=== PATIENT | female | born 1965 | race American Indian/Alaskan Native ===

== ENCOUNTER 2017-05-03 16:23 | Emergency (ER) | payer BC ==
[2017-05-03 16:31] VITALS: BP 170/98
[2017-05-03 16:54] LABS: Bilirubin,Urine NEG (Negative); Blood,Urine NEG (Negative); Color,Urine Straw (Yellow); Protein,Urine <15 mg/dL mg/dL (Negative); Urobilinogen,Urine < 2.0 mg/dL (<2.0); WBC,Urine < 1.0 /HPF (0.0-6.0)
--- NOTE | 2017-05-03 17:59 | Emergency Department Report ---
ED Back Pain/Injury HPI - General Chief Complaint: Abdominal Pain Stated Complaint: ABD PAIN Time Seen by Provider: 05/03/17 17:32 Source: patient Limitations: No Limitations - History of Present Illness MD Complaint: back pain -: Gradual, week(s) (1) Place: home Radiation: abdomen Severity: moderate Severity scale (0 -10): 8 Quality: burning, aching Consistency: constant Improves With: none Worsens With: movement Context: other (patient states he is doing sit up so we ago and felt some pain in her back) Associated Symptoms: denies: confusion, weakness, numbness, difficulty walking, diaphoresis, incontinence, fever/chills, constipation, headaches, abdominal pain , nausea/vomiting, seizure, shortness of breath, syncope - Related Data Previous Rx's Medication Instructions Recorded Last Taken Type Cyclobenzaprine [Flexeril 10mg] 10 mg PO TID PRN #30 tablet 04/12/14 Unknown Rx HYDROcodone/APAP 5-325 [[place] 1 each PO Q6HR PRN #14 tablet 05/03/17 Unknown Rx 5-325 mg TAB] Ibuprofen [Motrin 600 MG tab] 600 mg PO Q8H PRN #40 tablet 05/03/17 Unknown Rx methOCARBAMOL [Robaxin TAB] 500 mg PO Q6H PRN #15 tablet 05/03/17 Unknown Rx predniSONE [Deltasone] 20 mg PO QDAY #5 tab 05/03/17 Unknown Rx Allergies Allergy/AdvReac Type Severity Reaction Status Date / Time No Known Allergies Allergy Unverified 05/03/17 16:31 ED Review of Systems ROS: Stated complaint: ABD PAIN Other details as noted in HPI Comment: All other systems reviewed and negative ED Past Medical Hx Family history: no significant family history ED Back Pain Physical Exam - Exam General: Vital signs noted. No distress. Alert and acting appropriately. Patient's heart and lungs are within normal limits. Abdomen is soft and nontender. Back/Abdomen: Yes Perilumbar Tenderness (the patient has tenderness in the right lower back as well as the right buttock on palpation), No Abdominal Tenderness, No Perithoracic Tenderness, No Sacroiliac Tenderness, No Flank Tenderness, No Straight Leg Raise Pain Neuro: Yes Normal Sensation, Yes Normal DTR's, Yes Normal Gait, No Motor Weakness ED Course Vital Signs 05/03/17 16:28 Temperature 98.3 F Pulse Rate 84 Respiratory 16 Rate Blood Pressure 170/98 O2 Sat by Pulse 100 Oximetry ED Medical Decision Making - Medical Decision Making Patient be placed on meds for sciatica be discharged home. Critical care attestation.: If time is entered above; I have spent that time in minutes in the direct care of this critically ill patient, excluding procedure time. ED Disposition Clinical Impression: Sciatica Qualifiers: Laterality: right Qualified Code(s): M54.31 - Sciatica, right side Disposition: TO HOME OR SELFCARE Is pt being admited?: No Does the pt Need Aspirin: No Condition: Stable Instructions: Lumbar Radiculopathy (ED) Prescriptions: HYDROcodone/APAP 5-325 [[place] 5-325 mg TAB] 1 each PO Q6HR PRN #14 tablet PRN Reason: Pain Ibuprofen [Motrin 600 MG tab] 600 mg PO Q8H PRN #40 tablet PRN Reason: Pain methOCARBAMOL [Robaxin TAB] 500 mg PO Q6H PRN #15 tablet PRN Reason: Pain predniSONE [Deltasone] 20 mg PO QDAY #5 tab Referrals: YENNI DALY MD [Staff Physician] - 3-5 Days
== END 2017-05-03 18:27 | disposition home or self-care (01) ==
LOC: ED 16:23
DX: M54.31 Sciatica, right side (principal)
CPT/HCPCS: 81001; 99283

== ENCOUNTER 2018-08-04 13:46 | Emergency (ER) | payer BC ==
[2018-08-04 13:51] VITALS: BP 138/94
--- NOTE | 2018-08-04 13:54 | Emergency Department Report ---
Blank Doc - Documentation Documentation: This is a 53-year-old female that presents with right knee pain and swelling. Denies any injuries. This initial assessment/diagnostic orders/clinical plan/treatment(s) is/are subject to change based on patient's health status, clinical progression and re- assessment by fellow clinical providers in the ED. Further treatment and workup at subsequent clinical providers discretion. Patient/guardians urged not to elope from the ED as their condition may be serious if not clinically assessed and managed. Initial orders include: 1- Patient sent to [facility] for further evaluation and treatment 2- xray
--- NOTE | 2018-08-04 14:47 | XRay Report ---
PROCEDURE: XR KNEE 3V RT TECHNIQUE: 4 views right knee HISTORY: knee pain COMPARISONS: None FINDINGS: Large joint effusion. Enthesophyte superior pole patella. No acute fracture or malalignment. Joint sp emir maintained. IMPRESSION: Large joint effusion No acute fracture or malalignment. This document is electronically signed by Giorgio Raphael MD., August 04 2018 02:45:35 PM ET
[2018-08-04 15:37] LABS: Basophils % (Auto) 0.6 % (0.0-1.8); Eosinophils # (Auto) 0.1 K/mm3 (0.0-0.4); Eosinophils % (Auto) 1.2 % (0.0-4.3); Hematocrit 39.1 % (30.3-42.9); Hemoglobin 13.4 gm/dl (10.1-14.3); Lymphocytes # (Auto) 1.5 K/mm3 (1.2-5.4); Lymphocytes % (Auto) 27.5 % (13.4-35.0); Mean Corpuscular HGB Conc 34 % (30-34); Mean Corpuscular Volume 91 fl (79-97); Monocytes # (Auto) 0.7 K/mm3 (0.0-0.8); Monocytes % (Auto) 11.8 % (0.0-7.3); Platelet Count 318 K/mm3 (140-440); Red Blood Count 4.28 M/mm3 (3.65-5.03); Red Cell Distribution Width 13.6 % (13.2-15.2)
[2018-08-04 15:55] LABS: BUN/Creatinine Ratio 10; Blood Urea Nitrogen 9 mg/dL (7-17); Calcium 8.8 mg/dL (8.4-10.2); Hemolysis Index 2; Uric Acid 3.8 mg/dL (3.5-7.6)
[2018-08-04] MEDS ORDERED: NORCO 5/325 PO ONE (16:20)
--- NOTE | 2018-08-04 16:30 | Emergency Department Report ---
HPI - General Chief Complaint: Extremity Injury, Lower Time Seen by Provider: 08/04/18 13:52 - HPI HPI: 53-year-old -[place] female presents to the emergency department with the complaint of a 2 week history of progressively worsening right knee pain and swelling. She denies any trauma to the area. She says that she has a past medical history of some type of orthopedic right knee surgery from about 20 or 30 years ago in which they "removed some bony growth from my knee." The patient has not taken anything for her symptoms prior to presentation. She says that the symptoms have gotten to the point where she is having difficulty bending the knee or bearing weight. She has been using a knee brace. She has a primary care physician but has not seen them regarding her symptoms. No recent travel or sick contacts at home. She denies any skin color change to the area. ED Past Medical Hx - Past Medical History Previous Medical History?: Yes Additional medical history: right knee pain - Surgical History Past Surgical History?: Yes Additional Surgical History: R knee - Social History Smoking Status: Current Every Day Smoker Substance Use Type: Alcohol - Medications Home Medications: Home Medications Medication Instructions Recorded Confirmed Last Taken Type Cyclobenzaprine [Flexeril 10mg] 10 mg PO TID PRN #30 tablet 04/12/14 Unknown Rx Ibuprofen [Motrin 600 MG tab] 600 mg PO Q8H PRN #40 tablet 05/03/17 Unknown Rx methOCARBAMOL [Robaxin TAB] 500 mg PO Q6H PRN #15 tablet 05/03/17 Unknown Rx predniSONE [Deltasone] 20 mg PO QDAY #5 tab 05/03/17 Unknown Rx HYDROcodone/APAP 5-325 [[place] 1 each PO Q6HR PRN #12 tablet 08/04/18 Unknown Rx 5-325 mg TAB] Sulfamethoxazole/Trimethoprim 1 each PO BID #14 tablet 08/04/18 Unknown Rx [Bactrim DS TAB] ED Review of Systems ROS: Stated complaint: KNEE PAIN Other details as noted in HPI Comment: All other systems reviewed and negative Constitutional: denies: chills, fever Cardiovascular: edema (right knee swelling) Musculoskeletal: joint swelling, arthralgia Skin: denies: rash, lesions, change in color Neurological: denies: numbness, paresthesias Physical Exam - Physical Exam Vital Signs: Vital Signs 08/04/18 08/04/18 13:47 13:52 Temperature 98.5 F 98.5 F Pulse Rate 107 H 107 H Respiratory 18 18 Rate Blood Pressure 138/94 Blood Pressure 138/94 [Right] O2 Sat by Pulse 98 98 Oximetry Physical Exam: GENERAL: The patient is well-developed well-nourished. HENT: Normocephalic. Atraumatic. Patient has moist mucous membranes. EYES: Extraocular motions are intact. NECK: Supple. Trachea is midline. CHEST/LUNGS: Clear to auscultation. There is no respiratory distress noted. HEART/CARDIOVASCULAR: Regular. There is no tachycardia. There is no murmur. ABDOMEN: There is no abdominal distention. SKIN: Skin is warm and dry. There is moderate swelling to the medial, anterior and lateral right knee. There is some warmth but no fluctuance or erythema or lesions. NEURO: The patient is awake, alert, and oriented. The patient is cooperative. The patient has no focal neurologic deficits. The patient has normal speech. MUSCULOSKELETAL: There is tenderness to palpation to the circumferential right knee but worst to the anterior portion. Decreased range of motion of the right knee secondary to pain and swelling. ED Course Vital Signs 08/04/18 08/04/18 13:47 13:52 Temperature 98.5 F 98.5 F Pulse Rate 107 H 107 H Respiratory 18 18 Rate Blood Pressure 138/94 Blood Pressure 138/94 [Right] O2 Sat by Pulse 98 98 Oximetry ED Medical Decision Making - Lab Data Result diagrams: 08/04/18 15:03 08/04/18 15:03 - Radiology Data Radiology results: image reviewed interpreted by me: X-ray of the right knee does not show any fracture, dislocation but it shows a moderate to large joint effusion. - Medical Decision Making Patient presents with a 2 week history of progressively worsening right knee pain and swelling. On examination she does have moderate severe swelling of the anterior half of the knee. There is also some warmth associated with it but there is no erythema or rash or lesions seen. She is tender to palpation. Decreased range of motion secondary to pain and swelling. An x-ray was done that shows a large joint effusion but no fracture or dislocation. Patient's vital signs are stable including being afebrile. Labs were unremarkable including a CBC without leukocytosis, normal metabolic panel, and a low/normal uric acid level. I spoke to the patient in great detail regarding doing a knee arthrocentesis for both therapeutic reasons, but also for testing of fluid for gout, pseudogout, septic arthritis, blood. However the patient is refusing to have this procedure done. She is awake, alert, oriented and understands that if the arthrocentesis is not done that I am unable to rule out septic arthritis. There are many other possible etiologies within the di fferential diagnosis, but there are no proven blood tests to rule out the septic arthritis. She understands that if this is not done that it could be to increased swelling, increased pain, systemic infection/sepsis, or even loss of limb or life. The patient said, the patient will be empirically treated with some antibiotics and given a prescription for pain medication. She was given referrals for 2 different orthopedists and encouraged/instructed to follow up as soon as possible. She also understands that she can return to the emergency department at any time with any worsening of her symptoms or if any acute distress. - Differential Diagnosis osteoarthritis, rheumatoid arthritis, bursitis, septic arthritis Critical Care Time: No Critical care attestation.: If time is entered above; I have spent that time in minutes in the direct care of this critically ill patient, excluding procedure time. ED Disposition Clinical Impression: Knee effusion, right Right knee pain Qualifiers: Chronicity: acute Qualified Code(s): M25.561 - Pain in right knee Disposition: DC-01 TO HOME OR SELFCARE Is pt being admited?: No Condition: Stable Instructions: Knee Effusion (ED), Knee Pain (ED) Additional Instructions: Please follow up with an orthopedist as soon as possible regarding right knee pain, swelling, and the large joint effusion. Return to the emergency Department with any worsening of your symptoms, development of fever, or with any acute distress. You have been prescribed a medication that is sedating and therefore should not be taken prior to driving, working, and responsible for children and in no way should be mixed with alcohol of any quantity. Prescriptions: Sulfamethoxazole/Trimethoprim [Bactrim DS TAB] 1 each PO BID #14 tablet HYDROcodone/APAP 5-325 [[place] 5-325 mg TAB] 1 each PO Q6HR PRN #12 tablet PRN Reason: Pain Referrals: YENNI DALY MD [Staff Physician] - [facility] [Provider Group] - [place] Forms: Work/School Release Form(ED) Time of Disposition: 16:31
== END 2018-08-04 16:48 | disposition home or self-care (01) ==
LOC: ED 13:46
DX: M25.461 Effusion, right knee (principal); F17.200 Nicotine dependence, unspecified, uncomplicated
CPT/HCPCS: 36415; 80048; 84550; 85025; 99284

== ENCOUNTER 2018-08-13 07:45 | Emergency (ER) | payer BC ==
[2018-08-13 07:57] VITALS: BP 130/78
--- NOTE | 2018-08-13 09:57 | Emergency Department Report ---
ED General Adult HPI - General Chief complaint: Skin Rash Stated complaint: RASH Time Seen by Provider: 08/13/18 09:11 Source: patient Mode of arrival: Ambulatory Limitations: No Limitations - History of Present Illness Initial comments: Patient presents to the emergency department with a chief complaint of rash that started while she was on a cruise. Patient denies any fever but was concerned about the hygiene on the ship. -: Gradual Severity scale (0 -10): 0 Consistency: constant Improves with: none Worsens with: none Associated Symptoms: denies other symptoms Treatments Prior to Arrival: none - Related Data Previous Rx's Medication Instructions Recorded Last Taken Type Cyclobenzaprine [Flexeril 10mg] 10 mg PO TID PRN #30 tablet 04/12/14 Unknown Rx Ibuprofen [Motrin 600 MG tab] 600 mg PO Q8H PRN #40 tablet 05/03/17 Unknown Rx methOCARBAMOL [Robaxin TAB] 500 mg PO Q6H PRN #15 tablet 05/03/17 Unknown Rx predniSONE [Deltasone] 20 mg PO QDAY #5 tab 05/03/17 Unknown Rx HYDROcodone/APAP 5-325 [[place] 1 each PO Q6HR PRN #12 tablet 08/04/18 Unknown Rx 5-325 mg TAB] Sulfamethoxazole/Trimethoprim 1 each PO BID #14 tablet 08/04/18 Unknown Rx [Bactrim DS TAB] Prednisone [predniSONE 10 mg 10 mg PO .TAPER #1 tab.ds.pk 08/13/18 Unknown Rx (6-Day Pack, 21 Tabs)] Triamcinolone Acetonide 60 ml TP BID #1 lotion 08/13/18 Unknown Rx [Triamcinolone 0.1% LOTION] hydrOXYzine HCL [Atarax] 25 mg PO Q6HR PRN #24 tablet 08/13/18 Unknown Rx Allergies Allergy/AdvReac Type Severity Reaction Status Date / Time No Known Allergies Allergy Unverified 05/03/17 16:31 ED Review of Systems ROS: Stated complaint: RASH Other details as noted in HPI Constitutional: denies: chills, fever Eyes: denies: eye pain, eye discharge, vision change ENT: denies: ear pain, throat pain Respiratory: denies: cough, shortness of breath, wheezing Cardiovascular: denies: chest pain, palpitations Endocrine: no symptoms reported Gastrointestinal: denies: abdominal pain, nausea, diarrhea Genitourinary: denies: urgency, dysuria, discharge Musculoskeletal: denies: back pain, joint swelling, arthralgia Skin: rash, other (itching). denies: lesions Neurological: denies: headache, weakness, paresthesias Psychiatric: denies: anxiety, depression Hematological/Lymphatic: denies: easy bleeding, easy bruising ED Past Medical Hx - Past Medical History Previous Medical History?: No Additional medical history: right knee pain - Surgical History Past Surgical History?: Yes Additional Surgical History: R knee - Social History Smoking Status: Current Every Day Smoker Substance Use Type: None - Medications Home Medications: Home Medications Medication Instructions Recorded Confirmed Last Taken Type Cyclobenzaprine [Flexeril 10mg] 10 mg PO TID PRN #30 tablet 04/12/14 Unknown Rx Ibuprofen [Motrin 600 MG tab] 600 mg PO Q8H PRN #40 tablet 05/03/17 Unknown Rx methOCARBAMOL [Robaxin TAB] 500 mg PO Q6H PRN #15 tablet 05/03/17 Unknown Rx predniSONE [Deltasone] 20 mg PO QDAY #5 tab 05/03/17 Unknown Rx HYDROcodone/APAP 5-325 [[place] 1 each PO Q6HR PRN #12 tablet 08/04/18 Unknown Rx 5-325 mg TAB] Sulfamethoxazole/Trimethoprim 1 each PO BID #14 tablet 08/04/18 Unknown Rx [Bactrim DS TAB] Prednisone [predniSONE 10 mg 10 mg PO .TAPER #1 tab.ds.pk 08/13/18 Unknown Rx (6-Day Pack, 21 Tabs)] Triamcinolone Acetonide 60 ml TP BID #1 lotion 08/13/18 Unknown Rx [Triamcinolone 0.1% LOTION] hydrOXYzine HCL [Atarax] 25 mg PO Q6HR PRN #24 tablet 08/13/18 Unknown Rx ED Physical Exam - General Limitations: No Limitations General appearance: alert, in no apparent distress - Head Head exam: Present: atraumatic, normocephalic - Eye Eye exam: Present: normal appearance, PERRL, EOMI - ENT ENT exam: Present: mucous membranes moist - Neck Neck exam: Present: normal inspection - Respiratory Respiratory exam: Present: normal lung sounds bilaterally. Absent: respiratory distress - Cardiovascular Cardiovascular Exam: Present: regular rate, normal rhythm. Absent: systolic murmur, diastolic murmur, rubs, gallop - GI/Abdominal GI/Abdominal exam: Present: soft, normal bowel sounds - Extremities Exam Extremities exam: Present: normal inspection - Back Exam Back exam: Present: normal inspection - Neurological Exam Neurological exam: Present: alert, oriented X3 - Psychiatric Psychiatric exam: Present: normal affect, normal mood - Skin Skin exam: Present: warm, dry, intact, normal color, rash (rash consistent with contact dermatitis to the trunk, arms, back and neck) ED Course Vital Signs 08/13/18 07:55 Temperature 98.0 F Pulse Rate 97 H Respiratory 18 Rate Blood Pressure 130/78 O2 Sat by Pulse 99 Oximetry ED Medical Decision Making - Medical Decision Making 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 ED Disposition Clinical Impression: Rash Disposition: DC- TO HOME OR SELFCARE Is pt being admited?: No Does the pt Need Aspirin: No Condition: Stable Instructions: Acute Rash (ED) Additional Instructions: return if worse Prescriptions: hydrOXYzine HCL [Atarax] 25 mg PO Q6HR PRN #24 tablet PRN Reason: Itching Prednisone [predniSONE 10 mg (6-Day Pack, 21 Tabs)] 10 mg PO .TAPER #1 tab.ds.pk Triamcinolone Acetonide [Triamcinolone 0.1% LOTION] 60 ml TP BID #1 lotion Referrals: TOSHA GARCIA MD [Primary Care Provider] - 3-5 Days [facility] [Provider Group] - 3-5 Days [facility] [Provider Group] - 3-5 Days Forms: Work/School Release Form(ED) Time of Disposition: 09:55
== END 2018-08-13 10:12 | disposition home or self-care (01) ==
LOC: ED 07:45
DX: R21 Rash and other nonspecific skin eruption (principal); F17.200 Nicotine dependence, unspecified, uncomplicated; Z79.899 Other long term (current) drug therapy
CPT/HCPCS: 99282